=== PATIENT | male | born 1960 | race African-American/Black ===

== ENCOUNTER 2019-04-05 21:35 | Emergency (ER) | payer SELFPAY ==
[~2019-04-05] VITALS: Ht 182.9 cm; Wt 102.1 kg
[2019-04-05 21:48] VITALS: Ht 182.9 cm; Wt 102.1 kg
[2019-04-05 23:18] VITALS: BP 145/85
== END 2019-04-05 23:18 | disposition home or self-care (01) ==
LOC: ED 21:35
DX: J20.9 Acute bronchitis, unspecified (principal); Z88.0 Allergy status to penicillin